=== PATIENT | female | born 1965 | race Hispanic/Latino ===

== ENCOUNTER 2023-02-12 10:20 | Observation (INO) | payer SELFPAY ==
[2023-02-12] VITALS (17 sets, daily range): BP systolic 112–156; BP diastolic 66–95
[~2023-02-12] VITALS: Ht 154.9 cm; Wt 60.0 kg
[~2023-02-12 10:20] MED LIST: TRILEPTAL600 M1 PO
--- NOTE | 2023-02-12 10:20 | NUR ---
PATIENT ARRIVED TO ER VIA POV. PATIENT WHEELED TO ROOM BY ER STAFF. PATIETN AWAKE, ALERT AND STABLE. NO DISTRESS NOTED. PHYSICIAN AT BEDSIDE. WILL CONTINUE TO MONITOR.
--- NOTE | 2023-02-12 11:03 | NUR ---
PT MEDICATED PER EMAR.
[2023-02-12 11:13] LABS: BASO% 1.1 % (0-3); EOS% 0.1 % (0-8); HEMOGLOBIN 13.7 g/dl (12.0-16.0); IMMATURE GRANULOCYTES 0.1 % (0.0-5.0); LYMPH% 21.2 % (15-41); MEAN CELL VOLUME 90.9 fL CALC (80.0-100.0); MEAN CORPUSCULAR HGB 31.9 pG CALC (26.0-32.0); MEAN CORPUSCULAR HGB CONC 35.1 g/dL CAL (32.0-36.0); MONO% 5.9 % (2-13); NEUT# 5.04 thou/uL (2.00-7.15); NEUT% 71.6 % (42-76); RED BLOOD COUNT 4.29 mill/uL (4.20-5.60); RED CELL DISTRI WIDTH 12.5 % (11.5-15.5)
[2023-02-12 11:23] LABS: INTERNATIONAL NORMALIZED RATIO 1.1 RATIO (0.7-1.3); PROTHROMBIN TIME 10.3 SECONDS (9.0-12.5)
[2023-02-12 11:30] LABS: ALKALINE PHOSPHATASE 91 u/l (38-126); BILIRUBIN, TOTAL 0.7 mg/dL (0.02-1.3); BUN 10 mg/dL (7-17); BUN/CREATININE RATIO 20 (12-20 (CALC)); CARBON DIOXIDE 22 mmol/l (22-30); CHLORIDE 90 mmol/l (95-108); CREATININE 0.5 mg/dL (0.5-1.0); GFR FOR AFR.AMER. > 60 ML/MIN (>=60 (CALC)); GFR OTHER RACES > 60 ML/MIN (>=60 (CALC)); SGOT/AST 30 u/l (14-36)
[2023-02-12 11:32] LABS: ALBUMIN 4.8 g/dL (3.2-5.0); ANION GAP 16 (6-22 (CALC)); SODIUM 124 mmol/l (137-146); TOTAL PROTEIN 7.7 g/dL (6.3-8.2)
--- NOTE | 2023-02-12 12:17 | NUR ---
PT STATES SHE HAS A SCHEDULED DOSE OF GABAPENTIN TO TAKE AND IS REQUESTING PERMISSION TO TAKE WHILE IN ER. MD IS NOTIFIED. GIVES PT APPROVAL TO TAKE GABAPENTIN.
--- NOTE | 2023-02-12 13:00 | NUR ---
PT RESTING IN BED. VSS. PT DENIES ANY NEEDS AT THIS TIME.
--- NOTE | 2023-02-12 14:13 | NUR ---
MD IN ROOM WITH PATIENT TO DISCUSS PLAN TO ADMIT. PT STATES UNDERSTANDING.
--- NOTE | 2023-02-12 14:35 | NUR ---
REPORT CALLED AND GIVEN TO CANDE ON MS. PT BEING BROUGHT UP VIA WHEELCHAIR.
--- NOTE | 2023-02-12 14:40 | NUR ---
PT TO MED SURG VIA W/C, REPORT RECIEVED FROM ER NURSE. PT AMBULATES WITH ASSISTANCE TO BED, CONTINUES TO HAVE SOME DIZZINESS. PT IS URDU SPEAKING ONLY. USING TIMBER INSPECTOR FOR ASSESSMENT. PT IS ALERT AND ORIENTED X3, PT HAS NO C/O PAIN AT THIS TIME. PT HAS IV SITE #20 TO LAC CLEAN AND INTACT, FLUSHES WELL. PT LUNGS CLEAR THROUGHOUT AND BREATHING NON LABORED. PT ABD IS SOFT WITH ACTIVE BS; LAST BM YESTERDAY AND NORMAL PER PT. PT SKIN CLEAN, DRY AND INTACT. PT AMBULATES TO BATHROOM WITH ASSIST D/T DIZZINESS. PT ORIENTED TO RM AND CALL LIGHT. PT HAS CALL LIGHT WITHIN REACH AND SAFETY MEASURES IN PLACE AT THIS TIME.
--- NOTE | 2023-02-12 20:14 | NUR ---
received shift report. pt lying in bed with hob elevated. alert and oriented x 3. respirations even and unlabored. iv fluids infusing as ordered. safety precations maintained. top bed rails up. bed is locked. call light in reach
--- NOTE | 2023-02-13 01:32 | NUR ---
PT SLEEPING WELL. OOB TO BATHROOM . NO DIZZINESS REPORTED. IV FLUIDS INFUSING ORDERED. SAFETY PRECAUTIONS MAINTAINED CALL LIGHT IN REACH
[2023-02-13 04:05] VITALS: BP 142/81
[2023-02-13 04:53] LABS: BASO% 1.1 % (0-3); EOS% 0.8 % (0-8); HEMATOCRIT 37.3 % (37.0-47.0); HEMOGLOBIN 12.7 g/dl (12.0-16.0); IMMATURE GRANULOCYTES 0.1 % (0.0-5.0); LYMPH% 34.2 % (15-41); MEAN CELL VOLUME 93.3 fL CALC (80.0-100.0); MEAN CORPUSCULAR HGB 31.8 pG CALC (26.0-32.0); MONO% 7.2 % (2-13); NEUT# 4.27 thou/uL (2.00-7.15); NEUT% 56.6 % (42-76); RED CELL DISTRI WIDTH 12.6 % (11.5-15.5)
[2023-02-13 05:16] LABS: BUN 7 mg/dL (7-17); BUN/CREATININE RATIO 17 (12-20 (CALC)); CARBON DIOXIDE 21 mmol/l (22-30); CREATININE 0.4 mg/dL (0.5-1.0); GFR FOR AFR.AMER. > 60 ML/MIN (>=60 (CALC)); GFR OTHER RACES > 60 ML/MIN (>=60 (CALC)); SGOT/AST 19 u/l (14-36)
[2023-02-13 05:18] LABS: ALKALINE PHOSPHATASE 86 u/l (38-126); MAGNESIUM 1.9 mg/dL (1.6-2.3)
[2023-02-13 05:57] LABS: ANION GAP 12 (6-22 (CALC)); CHLORIDE 97 mmol/l (95-108); POTASSIUM 4.1 mmol/l (3.5-5.1); SODIUM 126 mmol/l (137-146)
[2023-02-13 05:58] LABS: ALBUMIN 3.8 g/dL (3.2-5.0); BILIRUBIN, TOTAL 0.4 mg/dL (0.02-1.3); TOTAL PROTEIN 6.1 g/dL (6.3-8.2)
[2023-02-13 06:53] VITALS: BP 147/74
[2023-02-13 14:23] VITALS: BP 132/73
[2023-02-13 14:38] VITALS: BP 132/73
--- NOTE | 2023-02-13 16:07 | NUR ---
PATIENT RESTING IN BED FRIEND AT BEDSIDE. NEW IV FLUIDS STARTED. NO NEW CONCERNS AT THIS TIME. CALL LIGHT WITHIN REACH. PLAN OF CARE ONGOING.
[2023-02-13 19:03] VITALS: BP 153/78
[2023-02-13 20:33] LABS: URINE BILIRUBIN - DIPSTICK Negative (NEGATIVE); URINE BLOOD DIPSTICK Small (NEGATIVE); URINE COLOR Yellow; URINE GLUCOSE - DIPSTICK Negative (NEGATIVE); URINE KETONE Negative (NEGATIVE); URINE LEUK ESTERASE Negative (NEGATIVE); URINE NITRITE - DIPSTICK Negative (Negative); URINE PH 7.5 (4.5-8.0); URINE PROTEIN - DIPSTICK Negative (NEG-TRACE); URINE SPECIFIC GRAVITY 1.015
[2023-02-13 20:42] LABS: URINE RBC 0-2 RBC/hpf (0-5); URINE SQUAMOUS EPITHELIAL CELL FEW EPI/hpf (0-FEW)
[2023-02-13 21:55] LABS: ALBUMIN 4.1 g/dL (3.2-5.0); ALKALINE PHOSPHATASE 119 u/l (38-126); ANION GAP 13 (6-22 (CALC)); BILIRUBIN, TOTAL 0.3 mg/dL (0.02-1.3); BUN 9 mg/dL (7-17); BUN/CREATININE RATIO 14 (12-20 (CALC)); CARBON DIOXIDE 22 mmol/l (22-30); CHLORIDE 104 mmol/l (95-108); CREATININE 0.7 mg/dL (0.5-1.0); GFR FOR AFR.AMER. > 60 ML/MIN (>=60 (CALC)); GFR OTHER RACES > 60 ML/MIN (>=60 (CALC)); POTASSIUM 4.2 mmol/l (3.5-5.1); SGOT/AST 24 u/l (14-36); TOTAL PROTEIN 6.3 g/dL (6.3-8.2)
[2023-02-13 22:25] LABS: SODIUM 135 mmol/l (137-146)
--- NOTE | 2023-02-14 00:16 | NUR ---
PT SLEEPING. SAFETY PRECATIONS MAINTAINED CALL LIGHT IN REACH
--- NOTE | 2023-02-14 02:13 | NUR ---
pt incontinent of a large amount of urine. bed linens changed. [facility] pt requested pain medication for lower back pain. safety precautions maintained. call light in reach
[2023-02-14 07:33] LABS: BASO% 0.6 % (0-3); EOS% 0.4 % (0-8); HEMATOCRIT 41.1 % (37.0-47.0); HEMOGLOBIN 14.1 g/dl (12.0-16.0); IMMATURE GRANULOCYTES 0.2 % (0.0-5.0); LYMPH% 19.2 % (15-41); MEAN CELL VOLUME 93.4 fL CALC (80.0-100.0); MEAN CORPUSCULAR HGB CONC 34.3 g/dL CAL (32.0-36.0); MONO% 6.1 % (2-13); NEUT# 6.28 thou/uL (2.00-7.15); NEUT% 73.5 % (42-76); RED BLOOD COUNT 4.4 mill/uL (4.20-5.60)
[2023-02-14 07:34] VITALS: BP 170/85
--- NOTE | 2023-02-14 07:49 | NUR ---
SHIT CHANGE REPORT, PT AWAKE ALERT AND ORIENTED SITTING UP ON BEDSIDE, C/O PAIN TO EPIGASTRIC AREA AND REFUSES MEAL STATING SHE CANT TOLERATE IT, ALTERNATE MEAL ORDERES FROM DIETARY REQUESTED BY PT. IVF INFUSING, CALL [place]OOK IN REACH AND BED LOCKED IN LOWEST POSITION. PT IS GEORGIAN SPEAKING ONLY, SPOUSE AT BEDSIDE.
[2023-02-14 09:36] LABS: ALBUMIN 4.5 g/dL (3.2-5.0); ALKALINE PHOSPHATASE 112 u/l (38-126); ANION GAP 16 (6-22 (CALC)); BILIRUBIN, TOTAL 0.4 mg/dL (0.02-1.3); BUN 7 mg/dL (7-17); BUN/CREATININE RATIO 17 (12-20 (CALC)); CARBON DIOXIDE 19 mmol/l (22-30); CHLORIDE 108 mmol/l (95-108); CREATININE 0.4 mg/dL (0.5-1.0); GFR FOR AFR.AMER. > 60 ML/MIN (>=60 (CALC)); GFR OTHER RACES > 60 ML/MIN (>=60 (CALC)); POTASSIUM 4.3 mmol/l (3.5-5.1); SGOT/AST 25 u/l (14-36); SODIUM 138 mmol/l (137-146); TOTAL PROTEIN 7.2 g/dL (6.3-8.2)
--- NOTE | 2023-02-14 10:08 | NUR ---
YOSEPH FROM ED CAME TO ASSIST WITH TRANSLATION FOR ASESSMENT. PT REPORTED SHE HAS BEEN HAVING PAIN ALL NIGHT, UNABLE TO SLEEP DUE TO PAIN IN EPIGASTRIC AREA, MED WAS GIVEN BUT INEFFECTIVE. NOTIFIED AT THIS TIME AND GAVE ORDERS-SAID WILL SEE PT WHEN HE GETS HERE.
--- NOTE | 2023-02-14 10:19 | NUR ---
NOTIFIED [facility] ENGINEER OF THE NEUROLOGY CONSULT FOR THIS PATIENT AT 1019 HRS.
--- NOTE | 2023-02-14 12:53 | NUR ---
MD ROUNDED WITH DIRECTOR TELEHEALTH FROM ED, CONCERNS ADDRESSED, WILL CONTINUE TO MONITOR.
--- NOTE | 2023-02-14 13:17 | NUR ---
MD ADVISED TO CALL HIM WHENEVER NEOROLOGY EVALUATES.
--- NOTE | 2023-02-14 14:00 | NUR ---
PT REPORTS PAIN MUCH IMPROVED SINCE TORADOL GIVEN, TOLERATING FOODS BETTER AT THIS TIME.
[2023-02-14] MEDS ORDERED: BACLOFEN10 MG PO (14:32)
[2023-02-14] MEDS ORDERED: PROTONIX40 M2 PO (14:39)
[2023-02-14 17:25] VITALS: BP 132/79
--- NOTE | 2023-02-14 21:19 | NUR ---
PT IN BED RESTING WITH EYES CLOSED. BREATHING IS EVEN AND UNLABORED. NO S/S OF DISTRESS NOTED. PT AWAHEN TO PEFORM SHIFT ASSESSMENT. PT DENIES PAIN OR DISCOMFORT. PT CURRENTLY HAS NO IV ASSCESS, PT WAS GOING TO BE DISCHARGE TODAY BUT DR CHANGE ORDER DUE TO WAITING FOR NEUROLOGY CONSULT. EXPECTED DISCHARGE ON 02/15/23. NO NEES OR CONCERNS VOICED. CALL LIGHT IN REACH AND BED IN LOWEST POSITION. FAMILY MEMBER AT BEDSIDE.
--- NOTE | 2023-02-15 00:53 | NUR ---
PT IN BED RESTING WITH EYES CLOSED, BREATHING IS EVEN AND UNLABORED. NO S/S OF DISTRESS NOTED. CALL LIGHT IN REACH AND BED IN LOWSET POSITION. FAMILY MEMBER AT BEDSIDE.
[2023-02-15 03:30] VITALS: BP 123/69
--- NOTE | 2023-02-15 05:01 | NUR ---
PT IN BED RSTING WITH EYES CLOSED. BREATHIN EVEN ADN UNLABORED. NO S/S OF DISTRESS NOTED. CALL LIGHT IN REACH AND BED IN LOWSET POSITION.
[2023-02-15 06:49] VITALS: BP 126/67
[2023-02-15 07:12] LABS: BASO% 0.7 % (0-3); EOS% 0.7 % (0-8); HEMATOCRIT 37.6 % (37.0-47.0); HEMOGLOBIN 12.7 g/dl (12.0-16.0); IMMATURE GRANULOCYTES 0.1 % (0.0-5.0); MEAN CELL VOLUME 94.2 fL CALC (80.0-100.0); MEAN CORPUSCULAR HGB 31.8 pG CALC (26.0-32.0); MEAN CORPUSCULAR HGB CONC 33.8 g/dL CAL (32.0-36.0); MONO% 6.6 % (2-13); NEUT# 3.81 thou/uL (2.00-7.15); NEUT% 56.9 % (42-76); RED BLOOD COUNT 3.99 mill/uL (4.20-5.60); RED CELL DISTRI WIDTH 13.2 % (11.5-15.5)
[2023-02-15 07:39] LABS: ALBUMIN 3.9 g/dL (3.2-5.0); ALKALINE PHOSPHATASE 79 u/l (38-126); ANION GAP 13 (6-22 (CALC)); BILIRUBIN, TOTAL 0.4 mg/dL (0.02-1.3); BUN 15 mg/dL (7-17); BUN/CREATININE RATIO 33 (12-20 (CALC)); CHLORIDE 102 mmol/l (95-108); CREATININE 0.4 mg/dL (0.5-1.0); GFR FOR AFR.AMER. > 60 ML/MIN (>=60 (CALC)); GFR OTHER RACES > 60 ML/MIN (>=60 (CALC)); MAGNESIUM 1.9 mg/dL (1.6-2.3); POTASSIUM 4.3 mmol/l (3.5-5.1); SGOT/AST 19 u/l (14-36); SODIUM 135 mmol/l (137-146); TOTAL PROTEIN 6.3 g/dL (6.3-8.2)
[2023-02-15 07:43] LABS: CARBON DIOXIDE 24 mmol/l (22-30)
--- NOTE | 2023-02-15 08:01 | NUR ---
SHIFT CHANGE REPORT, PT AWAKE ALERT AND ORIENTED RESTING IN BED, DENIES EPIGASTRIC PAIN AT THIS TIME, FEELS BETTER TODAY, NO NEW COMPLAINS, CALL H[place]BROOK IN REACH AND BED LOCKED IN LOWEST POSITION.
[2023-02-15] MEDS ORDERED: NEURONTIN600 MG PO ×2 (10:48→11:09)
[2023-02-15] MEDS ORDERED: BACLOFEN10 MG PO (11:09)
[2023-02-15] MEDS ORDERED: PROTONIX40 M2 PO (11:10)
--- NOTE | 2023-02-15 11:44 | NUR ---
Discharge instructions given. Patient verbalizes understanding of same. Discharged in good condition via Wheelchair to Home with spouse. All belongings sent with pt.
== END 2023-02-15 11:41 | disposition home or self-care (01) | DRG 641 ==
LOC: ED 10:20 → ED-I 10:45 → ED 14:23 → MS2 14:24
PROVIDERS: Emergency Medicine; Nurse Practitioner Family; ADMIT Student in an Organized Health Care Education/Training Program; ATTEND Student in an Organized Health Care Education/Training Program
DX: E87.1 Hypo-osmolality and hyponatremia (principal); T42.6X5A Adverse effect of other antiepileptic and sedative-hypnotic drugs, initial encounter; T42.1X5A Adverse effect of iminostilbenes, initial encounter; G50.0 Trigeminal neuralgia; D32.0 Benign neoplasm of cerebral meninges; K21.9 Gastro-esophageal reflux disease without esophagitis
CPT/HCPCS: G0378; J1650; S0164

== ENCOUNTER 2023-03-04 18:54 | Emergency (ER) | payer SELFPAY ==
[~2023-03-04] VITALS: Ht 154.9 cm; Wt 63.5 kg
[2023-03-04] VITALS (10 sets, daily range): BP systolic 109–168; BP diastolic 52–116
[~2023-03-04 18:54] MED LIST changes: +BACLOFEN10 MG PO; +NEURONTIN600 MG PO; +PROTONIX40 M2 PO
[2023-03-04 20:45] LABS: BASO% 1.1 % (0-3); EOS% 0.6 % (0-8); HEMATOCRIT 38.5 % (37.0-47.0); HEMOGLOBIN 13.3 g/dl (12.0-16.0); IMMATURE GRANULOCYTES 0.5 % (0.0-5.0); LYMPH% 41.3 % (15-41); MEAN CELL VOLUME 91.2 fL CALC (80.0-100.0); MEAN CORPUSCULAR HGB 31.5 pG CALC (26.0-32.0); MEAN CORPUSCULAR HGB CONC 34.5 g/dL CAL (32.0-36.0); NEUT# 3.27 thou/uL (2.00-7.15); NEUT% 49.5 % (42-76); RED BLOOD COUNT 4.22 mill/uL (4.20-5.60); RED CELL DISTRI WIDTH 12.7 % (11.5-15.5)
[2023-03-04 21:18] LABS: ALKALINE PHOSPHATASE 95 u/l (38-126); BILIRUBIN, TOTAL 0.4 mg/dL (0.02-1.3); BUN 7 mg/dL (7-17); BUN/CREATININE RATIO 18 (12-20 (CALC)); CARBON DIOXIDE 22 mmol/l (22-30); CHLORIDE 91 mmol/l (95-108); CREATININE 0.4 mg/dL (0.5-1.0); GFR FOR AFR.AMER. > 60 ML/MIN (>=60 (CALC)); GFR OTHER RACES > 60 ML/MIN (>=60 (CALC)); POTASSIUM 4.1 mmol/l (3.5-5.1); SGOT/AST 24 u/l (14-36)
[2023-03-04 21:19] LABS: ALBUMIN 4.7 g/dL (3.2-5.0); ANION GAP 13 (6-22 (CALC)); SODIUM 122 mmol/l (137-146)
[2023-03-04] MEDS ORDERED: HYDRALAZINE10 M2 PO (22:37)
[2023-03-04] MEDS ORDERED: FIORICET 50-3001 CAP PO (22:37)
== END 2023-03-04 23:02 | disposition home or self-care (01) | DRG 607 ==
LOC: ED 18:54
PROVIDERS: Internal Medicine
DX: R22.0 Localized swelling, mass and lump, head (principal); I10 Essential (primary) hypertension; Z72.0 Tobacco use; Z20.822 Contact with and (suspected) exposure to COVID-19

== ENCOUNTER 2023-04-11 13:45 | Emergency (ER) | payer SELFPAY ==
[~2023-04-11] VITALS: Ht 154.9 cm; Wt 59.0 kg
[~2023-04-11 13:45] MED LIST changes: +FIORICET 50-3001 CAP PO; +HYDRALAZINE10 M2 PO
[2023-04-11] MEDS ORDERED: ASPIRIN 81 MG/TAB PO ONE (14:15)
[2023-04-11] MEDS ORDERED: NITROGLYCERIN 0.4 MG/TAB SL ONE (14:15)
[2023-04-11] MEDS ORDERED: MORPHINE SULFATE 4 MG/ML VIAL SC ONE (14:15)
[2023-04-11] MEDS ORDERED: oxyCODONE 5MG/ ACETAMINOPHEN 325MG TAB PO ONE (14:30)
[2023-04-11] MEDS ORDERED: METHOCARBAMOL 500 MG/TAB PO ONE (14:35)
[2023-04-11] MEDS ORDERED: TRILEPTAL600 M1 PO (14:39)
[2023-04-11] MEDS ORDERED: SOD CHLORIDE1 GM OD (14:40)
[2023-04-11] MEDS ORDERED: POT CHLORIDE10 ME5 PO (14:40)
[2023-04-11 14:44] LABS: BASO% 1.1 % (0-3); EOS% 0.3 % (0-8); HEMATOCRIT 41.9 % (37.0-47.0); IMMATURE GRANULOCYTES 0.3 % (0.0-5.0); LYMPH% 29.3 % (15-41); MEAN CELL VOLUME 90.3 fL CALC (80.0-100.0); MEAN CORPUSCULAR HGB 32.3 pG CALC (26.0-32.0); MEAN CORPUSCULAR HGB CONC 35.8 g/dL CAL (32.0-36.0); MONO% 7.2 % (2-13); NEUT# 4.11 thou/uL (2.00-7.15); NEUT% 61.8 % (42-76); RED BLOOD COUNT 4.64 mill/uL (4.20-5.60); RED CELL DISTRI WIDTH 12.7 % (11.5-15.5)
[2023-04-11 15:04] LABS: ALBUMIN 5.1 g/dL (3.2-5.0); ALKALINE PHOSPHATASE 103 u/l (38-126); ANION GAP 15 (6-22 (CALC)); BUN 11 mg/dL (7-17); BUN/CREATININE RATIO 23 (12-20 (CALC)); CARBON DIOXIDE 20 mmol/l (22-30); CHLORIDE 93 mmol/l (95-108); CREATININE 0.5 mg/dL (0.5-1.0); GFR FOR AFR.AMER. > 60 ML/MIN (>=60 (CALC)); GFR OTHER RACES > 60 ML/MIN (>=60 (CALC)); POTASSIUM 4.1 mmol/l (3.5-5.1); SGOT/AST 26 u/l (14-36); SODIUM 124 mmol/l (137-146); TOTAL PROTEIN 7.8 g/dL (6.3-8.2)
[2023-04-11 15:19] LABS: BILIRUBIN, TOTAL 0.7 mg/dL (0.02-1.3)
[2023-04-11] MEDS ORDERED: GABAPENTIN 300 MG/CAP PO ONE (15:20)
[2023-04-11] MEDS ORDERED: METHOCARBAMOL500 MG PO (18:47)
[2023-04-11 19:02] VITALS: BP 167/88
[2023-04-11] MEDS ORDERED: MECLIZINE25 MG PO (20:32)
[2023-04-11] MEDS ORDERED: MECLIZINE HCL 25 MG/TAB PO ONE (20:35)
== END 2023-04-11 21:00 | disposition home or self-care (01) | DRG 74 ==
LOC: ED 13:45
PROVIDERS: Family Medicine
DX: G50.0 Trigeminal neuralgia (principal); D32.0 Benign neoplasm of cerebral meninges; Z72.0 Tobacco use

== ENCOUNTER 2023-04-12 10:04 | Observation (INO) | payer SELFPAY ==
[~2023-04-12] VITALS: Ht 154.9 cm; Wt 57.6 kg
[2023-04-12] VITALS (16 sets, daily range): BP systolic 111–189; BP diastolic 65–105
[~2023-04-12 10:04] MED LIST changes: +MECLIZINE25 MG PO; +METHOCARBAMOL500 MG PO; +POT CHLORIDE10 ME5 PO; +SOD CHLORIDE1 GM OD
[2023-04-12] MEDS ORDERED: ONDANSETRON HCl 4 MG/2 ML SDV IV ONE ×2 (10:30→16:10)
[2023-04-12] MEDS ORDERED: SODIUM CHLORIDE 0.9% 1,000 ML IV ONE ×2 (10:35→13:05)
[2023-04-12 10:49] LABS: BASO% 0.7 % (0-3); EOS% 0.1 % (0-8); HEMATOCRIT 40.1 % (37.0-47.0); HEMOGLOBIN 14.3 g/dl (12.0-16.0); IMMATURE GRANULOCYTES 0.3 % (0.0-5.0); MEAN CELL VOLUME 90.3 fL CALC (80.0-100.0); MEAN CORPUSCULAR HGB 32.2 pG CALC (26.0-32.0); MEAN CORPUSCULAR HGB CONC 35.7 g/dL CAL (32.0-36.0); MONO% 5.8 % (2-13); NEUT# 5.75 thou/uL (2.00-7.15); NEUT% 79.1 % (42-76); RED BLOOD COUNT 4.44 mill/uL (4.20-5.60); RED CELL DISTRI WIDTH 12.4 % (11.5-15.5)
[2023-04-12] MEDS ORDERED: DiphenhydrAMINE HCL 50 MG/ML SDV IV ONE (11:05)
[2023-04-12] MEDS ORDERED: KETOROLAC TROMETHAMINE 30 MG/ML SDV IV ONE (11:05)
[2023-04-12] MEDS ORDERED: METOCLOPRAMIDE HCL 10 MG/2 ML SDV IV ONE (11:05)
[2023-04-12 11:28] LABS: ALBUMIN 4.7 g/dL (3.2-5.0); ALKALINE PHOSPHATASE 95 u/l (38-126); ANION GAP 14 (6-22 (CALC)); BILIRUBIN, TOTAL 0.9 mg/dL (0.02-1.3); BUN 12 mg/dL (7-17); BUN/CREATININE RATIO 24 (12-20 (CALC)); CARBON DIOXIDE 20 mmol/l (22-30); CHLORIDE 90 mmol/l (95-108); CREATININE 0.5 mg/dL (0.5-1.0); GFR FOR AFR.AMER. > 60 ML/MIN (>=60 (CALC)); GFR OTHER RACES > 60 ML/MIN (>=60 (CALC)); POTASSIUM 3.4 mmol/l (3.5-5.1); SGOT/AST 30 u/l (14-36); SODIUM 121 mmol/l (137-146); TOTAL PROTEIN 7.5 g/dL (6.3-8.2)
[2023-04-12 14:10] LABS: URINE BILIRUBIN - DIPSTICK Negative (NEGATIVE); URINE BLOOD DIPSTICK Moderate (NEGATIVE); URINE GLUCOSE - DIPSTICK Negative (NEGATIVE); URINE KETONE 40 mg/dL (NEGATIVE); URINE LEUK ESTERASE Negative (NEGATIVE); URINE NITRITE - DIPSTICK Negative (Negative); URINE PROTEIN - DIPSTICK Negative (NEG-TRACE); URINE SPECIFIC GRAVITY 1.015
[2023-04-12 14:24] LABS: URINE COLOR Yellow; URINE EPITHELIAL CELLS RARE EPI/hpf (0-FEW); URINE RBC 0-2 RBC/hpf (0-5)
[2023-04-12] MEDS ORDERED: ACETAMINOPHEN 500 MG TAB PO ONE (15:40)
[2023-04-12] MEDS ORDERED: SODIUM CHLORIDE 0.9% 1,000 ML IV PRN (16:10)
[2023-04-12] MEDS ORDERED: ACETAMINOPHEN 325 MG/TAB PO PRN (16:10)
[2023-04-12] MEDS ORDERED: MAGNESIUM HYDROXIDE 30 ML UDC PO PRN (16:10)
[2023-04-12] MEDS ORDERED: BACLOFEN 10 MG/TAB PO PRN (16:15)
[2023-04-12] MEDS ORDERED: ONDANSETRON HCl 4 MG/2 ML SDV IV PRN (16:15)
[2023-04-12] MEDS ORDERED: ACETAMINOPHEN 1,000 MG/100 ML VIAL IV ONE (16:20)
[2023-04-12] MEDS ORDERED: hydrALAZINE HCL 20 MG/ML VIAL(1 ML) IV PRN (18:20)
[2023-04-12] MEDS ORDERED: amLODIPine BESYLATE 5 MG/TAB PO SCH (18:20)
[2023-04-12] MEDS ORDERED: OXcarbazepine 150 MG/TAB PO SCH (21:00)
[2023-04-12] MEDS ORDERED: GABAPENTIN 300 MG/CAP PO SCH (21:00)
[2023-04-12] MEDS ORDERED: ENOXAPARIN SODIUM 40 MG/0.4 ML SYR SC SCH (21:00)
[2023-04-13] VITALS (7 sets, daily range): BP systolic 101–166; BP diastolic 52–76
[2023-04-13 04:45] LABS: BASO% 1.1 % (0-3); EOS% 0.4 % (0-8); HEMOGLOBIN 12.7 g/dl (12.0-16.0); IMMATURE GRANULOCYTES 0.2 % (0.0-5.0); LYMPH% 29.5 % (15-41); MEAN CELL VOLUME 91.4 fL CALC (80.0-100.0); MEAN CORPUSCULAR HGB 32.2 pG CALC (26.0-32.0); MEAN CORPUSCULAR HGB CONC 35.3 g/dL CAL (32.0-36.0); MONO% 9.4 % (2-13); NEUT# 2.78 thou/uL (2.00-7.15); NEUT% 59.4 % (42-76); RED BLOOD COUNT 3.94 mill/uL (4.20-5.60); RED CELL DISTRI WIDTH 12.4 % (11.5-15.5)
[2023-04-13 05:01] LABS: ALBUMIN 3.9 g/dL (3.2-5.0); ALKALINE PHOSPHATASE 82 u/l (38-126); ANION GAP 12 (6-22 (CALC)); BILIRUBIN, TOTAL 0.6 mg/dL (0.02-1.3); BUN 8 mg/dL (7-17); BUN/CREATININE RATIO 20 (12-20 (CALC)); CARBON DIOXIDE 19 mmol/l (22-30); CHLORIDE 96 mmol/l (95-108); CREATININE 0.4 mg/dL (0.5-1.0); GFR FOR AFR.AMER. > 60 ML/MIN (>=60 (CALC)); GFR OTHER RACES > 60 ML/MIN (>=60 (CALC)); MAGNESIUM 1.8 mg/dL (1.6-2.3); POTASSIUM 3.2 mmol/l (3.5-5.1); SGOT/AST 21 u/l (14-36); SODIUM 123 mmol/l (137-146); TOTAL PROTEIN 6.2 g/dL (6.3-8.2)
[2023-04-13] MEDS ORDERED: MECLIZINE HCL 25 MG/TAB PO PRN (08:20)
[2023-04-13] MEDS ORDERED: POTASSIUM CHLORIDE 20 MEQ/TAB PO SCH (09:00)
[2023-04-13] MEDS ORDERED: DiphenhydrAMINE HCL 50 MG/ML SDV IV SCH (11:00)
[2023-04-14 04:41] VITALS: BP 146/68
[2023-04-14 05:48] LABS: BASO% 0.9 % (0-3); EOS% 0.5 % (0-8); HEMATOCRIT 39.4 % (37.0-47.0); HEMOGLOBIN 13.5 g/dl (12.0-16.0); IMMATURE GRANULOCYTES 0.2 % (0.0-5.0); LYMPH% 44.8 % (15-41); MEAN CELL VOLUME 93.6 fL CALC (80.0-100.0); MEAN CORPUSCULAR HGB 32.1 pG CALC (26.0-32.0); MEAN CORPUSCULAR HGB CONC 34.3 g/dL CAL (32.0-36.0); MONO% 8.8 % (2-13); NEUT# 2.6 thou/uL (2.00-7.15); NEUT% 44.8 % (42-76); RED BLOOD COUNT 4.21 mill/uL (4.20-5.60); RED CELL DISTRI WIDTH 12.9 % (11.5-15.5)
[2023-04-14 06:02] LABS: ALBUMIN 4.1 g/dL (3.2-5.0); ALKALINE PHOSPHATASE 98 u/l (38-126); BILIRUBIN, TOTAL 0.4 mg/dL (0.02-1.3); BUN 6 mg/dL (7-17); BUN/CREATININE RATIO 12 (12-20 (CALC)); CHLORIDE 103 mmol/l (95-108); CREATININE 0.5 mg/dL (0.5-1.0); GFR FOR AFR.AMER. > 60 ML/MIN (>=60 (CALC)); GFR OTHER RACES > 60 ML/MIN (>=60 (CALC)); MAGNESIUM 2.1 mg/dL (1.6-2.3); SGOT/AST 19 u/l (14-36); TOTAL PROTEIN 6.5 g/dL (6.3-8.2)
[2023-04-14 06:21] LABS: ANION GAP 8 (6-22 (CALC)); CARBON DIOXIDE 26 mmol/l (22-30); SODIUM 133 mmol/l (137-146)
[2023-04-14 07:21] VITALS: BP 132/65
[2023-04-14] MEDS ORDERED: KETOROLAC TROMETHAMINE 15 MG/ML SDV IV PRN (10:10)
[2023-04-14 10:42] VITALS: BP 129/64
[2023-04-14 15:26] VITALS: BP 142/66
[2023-04-14 19:27] VITALS: BP 167/79
[2023-04-14] MEDS ORDERED: CLARIFY DOSE PO PRN (23:15)
[2023-04-14 23:42] VITALS: BP 131/70
[2023-04-15] MEDS ORDERED: OXcarbazepine 150 MG/TAB PO SCH (00:15)
[2023-04-15 03:44] VITALS: BP 114/60
[2023-04-15 06:25] LABS: HEMATOCRIT 36.9 % (37.0-47.0); HEMOGLOBIN 12.6 g/dl (12.0-16.0); MEAN CELL VOLUME 93.4 fL CALC (80.0-100.0); MEAN CORPUSCULAR HGB 31.9 pG CALC (26.0-32.0); MEAN CORPUSCULAR HGB CONC 34.1 g/dL CAL (32.0-36.0); RED BLOOD COUNT 3.95 mill/uL (4.20-5.60); RED CELL DISTRI WIDTH 13.1 % (11.5-15.5)
[2023-04-15 06:41] LABS: ANION GAP 9 (6-22 (CALC)); BUN 7 mg/dL (7-17); BUN/CREATININE RATIO 17 (12-20 (CALC)); CARBON DIOXIDE 26 mmol/l (22-30); CHLORIDE 102 mmol/l (95-108); CREATININE 0.4 mg/dL (0.5-1.0); GFR FOR AFR.AMER. > 60 ML/MIN (>=60 (CALC)); GFR OTHER RACES > 60 ML/MIN (>=60 (CALC)); MAGNESIUM 1.9 mg/dL (1.6-2.3); POTASSIUM 3.6 mmol/l (3.5-5.1); SODIUM 133 mmol/l (137-146)
[2023-04-15 07:23] VITALS: BP 122/69
[2023-04-15 11:00] VITALS: BP 130/70
[2023-04-15] MEDS ORDERED: MECLIZINE25 MG PO (11:59)
[2023-04-15] MEDS ORDERED: NEURONTIN600 MG PO (12:00)
[2023-04-15] MEDS ORDERED: SOD CHLORIDE1 GM OD (12:00)
[2023-04-15] MEDS ORDERED: POT CHLORIDE10 ME5 PO (12:00)
[2023-04-15] MEDS ORDERED: TRILEPTAL600 M1 PO (12:00)
[2023-04-15] MEDS ORDERED: AMLODIPINE BESYL5 MG PO (12:01)
[2023-04-15] MEDS ORDERED: BACLOFEN10 MG PO (12:03)
[2023-04-15] MEDS ORDERED: LIDOCAINE 4 % PATCH TD SCH (12:30)
[2023-04-15 13:55] VITALS: BP 126/68
== END 2023-04-15 14:18 | disposition home or self-care (01) | DRG 641 ==
LOC: ED 10:04 → ED-I 14:14 → ED 14:42 → MS2 14:43
PROVIDERS: Family Medicine; Nurse Practitioner Family; ADMIT Student in an Organized Health Care Education/Training Program; ATTEND Student in an Organized Health Care Education/Training Program
DX: E87.1 Hypo-osmolality and hyponatremia (principal); E87.6 Hypokalemia; I10 Essential (primary) hypertension; G50.0 Trigeminal neuralgia; D32.0 Benign neoplasm of cerebral meninges; F17.200 Nicotine dependence, unspecified, uncomplicated; T50.996A Underdosing of other drugs, medicaments and biological substances, initial encounter; Z91.120 Patient's intentional underdosing of medication regimen due to financial hardship; Z20.822 Contact with and (suspected) exposure to COVID-19
CPT/HCPCS: G0378; J0131; J1650